=== PATIENT | male | born 1990 | race Two or more races ===

== ENCOUNTER 2018-08-23 23:14 | Emergency (ER) | payer OTHER ==
[~2018-08-23] VITALS: Ht 177.8 cm; Wt 72.7 kg
[2018-08-23 23:46] LABS: BASOPHILS % (AUTO) 0.3 % (0-1); EOSINOPHILS # (AUTO) 0.3 X10'3 (0-0.9); EOSINOPHILS % (AUTO) 2.4 % (0-6); HEMOGLOBIN 14.7 g/dl (14.0-17.9); LYMPHOCYTES # (AUTO) 4.3 X10'3 (1.1-4.8); LYMPHOCYTES % (AUTO) 39.3 % (21-51); MEAN CORPUSCULAR HEMOGLOBIN 28.3 PG (27.0-31.0); MEAN CORPUSCULAR HGB CONC 33.3 % (33.0-36.5); MEAN CORPUSCULAR VOLUME 84.8 FL (78-98); MEAN PLATELET VOLUME 6.8 FL (7.4-10.4); MONOCYTES # (AUTO) 0.5 X10'3 (0-0.9); NEUTROPHILS # (AUTO) 5.8 X10'3 (1.8-7.7); PLATELET COUNT 314 X10'3 (140-440); RED BLOOD COUNT 5.19 X10'6 (4.70-6.10); WHITE BLOOD COUNT 10.9 X10'3 (4.5-11.0)
[2018-08-23] MEDS ORDERED: pantoprazole 40mg Tablet.DR PO ONE (23:50)
[2018-08-23] MEDS ORDERED: ondansetron 4mg rapidly disintigrating tab PO ONE (23:50)
[2018-08-23] MEDS ORDERED: LIDOcaine Viscous 15ml cup PO ONE (23:50)
[2018-08-23] MEDS ORDERED: mag hydrox/Alum hydrox/simeth 30ml oral suspension PO ONE (23:50)
[2018-08-23] MEDS ORDERED: famotidine 20mg tablet PO ONE (23:50)
[2018-08-24 00:04] LABS: ALANINE AMINOTRANSFERASE 33 U/L (12-78); ALBUMIN 3.8 G/DL (3.4-5.0); ALBUMIN/GLOBULIN RATIO 1.2 (1.1-1.5); ALKALINE PHOSPHATASE 105 IU/L (46-116); AMYLASE 77 U/L (25-115); ANION GAP 8 (8-16); ASPARTATE AMINO TRANSFERASE 17 U/L (10-37); BILIRUBIN,TOTAL 0.2 MG/DL (0.1-1.0); BLOOD UREA NITROGEN 12 MG/DL (7-18); BUN/CREATININE RATIO 13.8 (5.4-32.0); CHLORIDE 102 MMOL/L (99-107); CREATININE 0.87 MG/DL (0.60-1.10); GLUCOSE 103 MG/DL (70-104); LIPASE 167 U/L (73-393); POTASSIUM 3.6 MMOL/L (3.5-5.1); SODIUM 139 MMOL/L (135-145); TOTAL CARBON DIOXIDE 28.7 MMOL/L (24-32); eGFR > 90 ML/MIN
[2018-08-24 00:20] LABS: TROPONIN I < 0.04 NG/ML (0.0-0.05)
[2018-08-24 00:27] LABS: PROTHROMBIN TIME 9.7 SECONDS (9.0-12.0)
[2018-08-24 00:36] LABS: CLARITY,URINE CLEAR (Clear); COLOR,URINE YELLOW (Yellow); GLUCOSE, URINE NEGATIVE (Neg); KETONES,URINE NEGATIVE (Neg); LEUKOCYTE ESTERASE ,URINE NEGATIVE (Neg); NITRITES, URINE NEGATIVE (Neg); OCCULT BLOOD,URINE NEGATIVE (Neg); PH,URINE 6.5 (4.8-8.0); PROTEIN,URINE NEGATIVE (Neg)
[2018-08-24 00:38] LABS: UA COLLECTION TYPE CLN CATCH MIDSTREAM
[2018-08-24] MEDS ORDERED: PANT-47 PO (00:58)
[2018-08-24 01:01] VITALS: BP 119/80
== END 2018-08-24 01:02 | disposition home or self-care (01) ==
LOC: ER 23:15
DX: K21.9 Gastro-esophageal reflux disease without esophagitis (principal); R07.89 Other chest pain; F17.210 Nicotine dependence, cigarettes, uncomplicated; Z79.899 Other long term (current) drug therapy
CPT/HCPCS: 36415; 80053; 81003; 82150; 83690; 84484; 85025; 85610; 93005; 99284

== ENCOUNTER 2021-07-17 10:42 | Emergency (ER) | payer MEDICAID ==
[~2021-07-17] VITALS: Ht 170.2 cm; Wt 75.0 kg
[~2021-07-17 10:42] MED LIST: PANT-47 PO
[2021-07-17 11:11] VITALS: BP 131/83
[2021-07-17] MEDS ORDERED: ACET-1025 PO (14:27)
[2021-07-17] MEDS ORDERED: IBUP-1984 PO (14:27)
[2021-07-18] MEDS ORDERED: AMOX-422 PO (01:37)
[2021-07-18] MEDS ORDERED: HYDR-3965 PO (01:42)
== END 2021-07-17 14:58 | disposition home or self-care (01) ==
LOC: ER 10:43
DX: G43.909 Migraine, unspecified, not intractable, without status migrainosus (principal); R11.0 Nausea; K21.9 Gastro-esophageal reflux disease without esophagitis; Z72.89 Other problems related to lifestyle; Z79.899 Other long term (current) drug therapy
CPT/HCPCS: 70450; 99284

== ENCOUNTER 2021-07-18 01:01 | Emergency (ER) | payer MEDICAID ==
[~2021-07-18] VITALS: Ht 175.3 cm; Wt 80.6 kg
[~2021-07-18 01:01] MED LIST changes: +ACET-1025 PO; +IBUP-1984 PO
[2021-07-18 01:17] VITALS: BP 127/87
[2021-07-18] MEDS ORDERED: AMOX-422 PO (01:37)
[2021-07-18] MEDS ORDERED: HYDR-3965 PO (01:42)
[2021-07-18] MEDS ORDERED: HYDROcodone/acetaminophen 5mg/325mg tablet PO ONE (01:45)
[2021-07-18] MEDS ORDERED: amox tr/potassium clavulanate 875/125mg TAB PO ONE (01:45)
== END 2021-07-18 02:00 | disposition home or self-care (01) ==
LOC: ER 01:02
DX: K04.7 Periapical abscess without sinus (principal); J32.9 Chronic sinusitis, unspecified; R51.9 Headache, unspecified; K21.9 Gastro-esophageal reflux disease without esophagitis; Z72.89 Other problems related to lifestyle; Z79.899 Other long term (current) drug therapy
CPT/HCPCS: 99283

== ENCOUNTER 2022-09-23 13:54 | Inpatient (IN) | payer MEDICAID ==
[~2022-09-23] VITALS: Ht 177.8 cm; Wt 73.2 kg
[~2022-09-23 13:54] MED LIST changes: -ACET-1025 PO; -IBUP-1984 PO
[2022-09-23] MEDS ORDERED: acetaminophen 325mg tablet PO ONE (14:30)
[2022-09-23] MEDS ORDERED: ibuprofen tablet 400 MG TABLET PO ONE (16:10)
[2022-09-23] MEDS ORDERED: normal saline 1000ML IV soln IV ONE (16:20)
[2022-09-23] MEDS ORDERED: thiamine 100mg/ml 2ml inj. IV ONE (16:20)
[2022-09-23] MEDS ORDERED: folic acid 1mg/0.2ml inj IV ONE (16:23)
[2022-09-23 16:57] LABS: BASOPHILS % (AUTO) 0.1 % (0-1); EOSINOPHILS % (AUTO) 0.1 % (0-6); HEMATOCRIT 40.9 % (42.0-52.0); HEMOGLOBIN 13.7 g/dl (14.0-17.9); LYMPHOCYTES # (AUTO) 1.2 X10'3 (1.1-4.8); LYMPHOCYTES % (AUTO) 8.3 % (21-51); MEAN CORPUSCULAR HEMOGLOBIN 28.4 PG (27.0-31.0); MEAN CORPUSCULAR HGB CONC 33.4 g/dL (33.0-36.5); MEAN CORPUSCULAR VOLUME 85.2 FL (78-98); MEAN PLATELET VOLUME 7.5 FL (7.4-10.4); MONOCYTES % (AUTO) 6.9 % (2-12); NEUTROPHILS % (AUTO) 84.6 % (42-75); PLATELET COUNT 174 X10'3 (140-440); RED CELL DISTRIBUTION WIDTH 14.4 % (11.5-14.5); WHITE BLOOD COUNT 14.2 X10'3 (4.5-11.0)
[2022-09-23] MEDS: LORazepam 2 mg/ml vial IV ONE ×2 (16:59→18:03)
[2022-09-23] MEDS ORDERED: CefTRIAXone/D5W-Rocephin 1gm 50 ML IV ONE (17:05)
[2022-09-23] MEDS ORDERED: azithromycin/NS 500mg/250ml 250 ML IV ONE (17:05)
[2022-09-23 17:16] LABS: ALANINE AMINOTRANSFERASE 40 U/L (12-78); ALBUMIN 2.8 G/DL (3.4-5.0); ALBUMIN/GLOBULIN RATIO 0.6 (1.1-1.5); ALKALINE PHOSPHATASE 76 IU/L (46-116); ANION GAP 12 (8-16); ASPARTATE AMINO TRANSFERASE 64 U/L (10-37); BILIRUBIN,TOTAL 0.8 MG/DL (0.1-1.0); BLOOD UREA NITROGEN 19 MG/DL (7-18); BUN/CREATININE RATIO 14.3 (5.4-32.0); CALCIUM 8.3 MG/DL (8.5-10.1); CHLORIDE 92 MMOL/L (99-107); CREATININE 1.33 MG/DL (0.60-1.10); GLUCOSE 104 MG/DL (70-104); SODIUM 125 MMOL/L (135-145); TOTAL CARBON DIOXIDE 21.3 MMOL/L (24-32); TOTAL PROTEIN 7.2 G/DL (6.4-8.2); eGFR 62 ML/MIN
--- NOTE | 2022-09-23 17:20 | NUR ---
ATIVAN HELD AT THIS TIME DUE TO PT SCORING 5 ON CIWA.
[2022-09-23 17:21] LABS: POTASSIUM 2.8 MMOL/L (3.5-5.1)
[2022-09-23] MEDS ORDERED: magnesium 2GM in 50ml NS 50 ML IV ONE (17:25)
[2022-09-23] MEDS ORDERED: potassium Cl 10 mEq/100mL bag IV ONE (17:25)
[2022-09-23] MEDS ORDERED: potassium Cl 20 mEq SR tablet PO ONE (17:25)
[2022-09-23 18:09] LABS: URINE AMPHETAMINE SCREEN POSITIVE (Neg); URINE BARBITUATE SCREEN NEGATIVE (Neg); URINE BENZODIAZEPINES SCREEN NEGATIVE (Neg); URINE CANNABINOID SCREEN NEGATIVE (Neg); URINE COCAINE SCREEN NEGATIVE (Neg); URINE METHADONE SCREEN NEGATIVE (Neg); URINE OPIATE SCREEN NEGATIVE (Neg); URINE PHENCYCLIDINE SCREEN NEGATIVE (Neg)
[2022-09-23 18:25] LABS: CLARITY,URINE SLIGHTLY CLOUDY (Clear); COLOR,URINE YELLOW (Yellow); GLUCOSE, URINE NEGATIVE (Neg); KETONES,URINE 40 mg/dl (Neg); LEUKOCYTE ESTERASE ,URINE NEGATIVE (Neg); NITRITES, URINE NEGATIVE (Neg); OCCULT BLOOD,URINE MODERATE (Neg); PROTEIN,URINE 30 mg/dl (Neg); UROBILINOGEN,URINE 0.2 E.U/dL (0.2-1.0)
[2022-09-23 18:30] LABS: TOTAL CELLS COUNTED 100
[2022-09-23 18:31] LABS: ANISOCYTOSIS FEW; PLATELET ESTIMATE NORMAL; TOXIC VACUOLATION 3+
[2022-09-23 18:36] LABS: UA COLLECTION TYPE NON-SPECIFIED
[2022-09-23 18:38] LABS: BACTERIA,URINE 1+ /HPF (Neg); WBC,URINE 0-4 /HPF (0-4)
[2022-09-23 18:39] LABS: SQUAMOUS EPITHELIAL CELL,UR FEW /LPF (FEW); TRANSITIONAL EPI CELLS,URINE FEW /HPF
[2022-09-23] MEDS ORDERED: normal saline 1000ml 1,000 ML IV SCH (19:25)
[2022-09-23] MEDS ORDERED: mag hydrox/Alum hydrox/simeth 30ml oral suspension PO PRN (19:25)
[2022-09-23] MEDS ORDERED: acetaminophen 325mg tablet PO PRN (19:25)
[2022-09-23] MEDS ORDERED: potassium Cl 40MEQ/1/2NS 520ml 520 ML IV PRN (19:25)
[2022-09-23] MEDS ORDERED: potassium Cl 20 mEq SR tablet PO PRN ×2 (19:25)
[2022-09-23] MEDS ORDERED: LORazepam 2 mg/ml vial IV PRN (19:25)
[2022-09-23] MEDS ORDERED: magnesium hydroxide 30ml (MOM) UD suspension PO PRN (19:25)
[2022-09-23] MEDS ORDERED: magnesium 4gm in 100ml NS 100 ML IV PRN (19:25)
[2022-09-23] MEDS ORDERED: ondansetron/PF 4mg/2ml inj IV PRN (19:25)
[2022-09-23] MEDS ORDERED: magnesium Cl slow-release 64mg tablet PO PRN (19:25)
[2022-09-23] MEDS ORDERED: albuterol 2.5 MG/3 ML nebule NEB PRN (19:35)
[2022-09-23] MEDS ORDERED: K and/or MAG REPLACEMENT MC SCH (20:00)
[2022-09-23] MEDS ORDERED: docusate sod 100mg capsule PO SCH (20:00)
[2022-09-23 23:57] LABS: ALANINE AMINOTRANSFERASE 40 U/L (12-78); ALBUMIN 2.4 G/DL (3.4-5.0); ALBUMIN/GLOBULIN RATIO 0.6 (1.1-1.5); ALKALINE PHOSPHATASE 69 IU/L (46-116); ANION GAP 10 (8-16); ASPARTATE AMINO TRANSFERASE 57 U/L (10-37); BILIRUBIN,TOTAL 0.7 MG/DL (0.1-1.0); BLOOD UREA NITROGEN 17 MG/DL (7-18); BUN/CREATININE RATIO 15.6 (5.4-32.0); CALCIUM 7.9 MG/DL (8.5-10.1); CHLORIDE 99 MMOL/L (99-107); CREATININE 1.09 MG/DL (0.60-1.10); GLUCOSE 103 MG/DL (70-104); POTASSIUM 3.4 MMOL/L (3.5-5.1); SODIUM 133 MMOL/L (135-145); TOTAL CARBON DIOXIDE 23.8 MMOL/L (24-32); TOTAL PROTEIN 6.6 G/DL (6.4-8.2); eGFR 78 ML/MIN
[2022-09-24 01:00] VITALS: BP 96/60
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
--- NOTE | 2022-09-24 06:08 | NUR ---
his mother was notified that he left the ER. She was made aware he has an IV still in place. She will go look for him.
[2022-09-24] MEDS ORDERED: pantoprazole 40mg Tablet.DR PO SCH (08:00)
[2022-09-24] MEDS ORDERED: CefTRIAXone/D5W-Rocephin 1gm 50 ML IV SCH (08:00)
[2022-09-24] MEDS ORDERED: multivitamins, therapeutics tablet PO SCH (08:00)
[2022-09-24] MEDS ORDERED: azithromycin/NS 500mg/250ml 250 ML IV SCH (08:00)
[2022-09-24] MEDS ORDERED: NO HOME MEDS (14:30)
[2022-09-28] MEDS ORDERED: folic acid 1mg tablet PO SCH (08:00)
[2022-09-28] MEDS ORDERED: thiamine 100mg tablet PO SCH (08:00)
== END 2022-09-24 08:11 | disposition left against medical advice (07) | DRG 720 ==
LOC: ER 13:55 → ED HOLD 19:30
PROVIDERS: ADMIT Family Medicine; ATTEND Family Medicine
DX: A41.9 Sepsis, unspecified organism (principal); N17.0 Acute kidney failure with tubular necrosis; J18.9 Pneumonia, unspecified organism; Z20.822 Contact with and (suspected) exposure to COVID-19; D64.9 Anemia, unspecified; E86.0 Dehydration; F10.230 Alcohol dependence with withdrawal, uncomplicated; K21.9 Gastro-esophageal reflux disease without esophagitis; E87.6 Hypokalemia; E87.1 Hypo-osmolality and hyponatremia; F15.10 Other stimulant abuse, uncomplicated; F17.210 Nicotine dependence, cigarettes, uncomplicated; Z79.899 Other long term (current) drug therapy; Z71.6 Tobacco abuse counseling
CPT/HCPCS: 36415; 71045; 80053; 80305; 81001; 82948; 83605; 84145; 84484; 85007; 85025; 87040; 87502; 87503; 87635; 99285; C9803; G0378; J0456; J0696; J2060; J3411; J3475; J3480; J7030

== ENCOUNTER 2022-09-24 11:21 | Inpatient (IN) | payer MEDICAID ==
[~2022-09-24] VITALS: Ht 177.8 cm; Wt 77.3 kg
[2022-09-24] MEDS ORDERED: acetaminophen 325mg tablet PO STA (11:31)
[2022-09-24] MEDS ORDERED: normal saline 1000ML IV soln IV ONE (11:35)
[2022-09-24] MEDS ORDERED: CefTRIAXone 2gm/D5W 50ml BAG 50 ML IV ONE (11:35)
[2022-09-24] MEDS ORDERED: azithromycin/NS 500mg/250ml 250 ML IV ONE ×2 (11:45→18:00)
[2022-09-24 12:07] LABS: BASOPHILS % (AUTO) 0.1 % (0-1); EOSINOPHILS % (AUTO) 0 % (0-6); HEMATOCRIT 38.8 % (42.0-52.0); LYMPHOCYTES # (AUTO) 0.6 X10'3 (1.1-4.8); LYMPHOCYTES % (AUTO) 5.5 % (21-51); MEAN CORPUSCULAR HEMOGLOBIN 28.5 PG (27.0-31.0); MEAN CORPUSCULAR HGB CONC 33.6 g/dL (33.0-36.5); MEAN PLATELET VOLUME 7.6 FL (7.4-10.4); MONOCYTES # (AUTO) 0.4 X10'3 (0-0.9); MONOCYTES % (AUTO) 3.9 % (2-12); NEUTROPHILS # (AUTO) 9.5 X10'3 (1.8-7.7); NEUTROPHILS % (AUTO) 90.5 % (42-75); PLATELET COUNT 190 X10'3 (140-440); RED BLOOD COUNT 4.57 X10'6 (4.70-6.10); RED CELL DISTRIBUTION WIDTH 14.2 % (11.5-14.5); WHITE BLOOD COUNT 10.5 X10'3 (4.5-11.0)
[2022-09-24 12:26] LABS: ALANINE AMINOTRANSFERASE 43 U/L (12-78); ALBUMIN 2.4 G/DL (3.4-5.0); ALBUMIN/GLOBULIN RATIO 0.6 (1.1-1.5); ALKALINE PHOSPHATASE 83 IU/L (46-116); ANION GAP 7 (8-16); ASPARTATE AMINO TRANSFERASE 70 U/L (10-37); BILIRUBIN,TOTAL 0.5 MG/DL (0.1-1.0); BLOOD UREA NITROGEN 15 MG/DL (7-18); BUN/CREATININE RATIO 13.6 (5.4-32.0); CALCIUM 7.5 MG/DL (8.5-10.1); CHLORIDE 100 MMOL/L (99-107); ETHANOL < 0.010 GM/DL (0.0-0.010); GLUCOSE 126 MG/DL (70-104); POTASSIUM 3.6 MMOL/L (3.5-5.1); SODIUM 131 MMOL/L (135-145); TOTAL CARBON DIOXIDE 23.7 MMOL/L (24-32); TOTAL PROTEIN 6.5 G/DL (6.4-8.2); eGFR 77 ML/MIN
[2022-09-24] MEDS ORDERED: potassium Cl 20 mEq SR tablet PO PRN (13:10)
[2022-09-24] MEDS ORDERED: potassium Cl 40MEQ/1/2NS 520ml 520 ML IV PRN (13:10)
[2022-09-24] MEDS ORDERED: mag hydrox/Alum hydrox/simeth 30ml oral suspension PO PRN (13:10)
[2022-09-24] MEDS ORDERED: ondansetron/PF 4mg/2ml inj IV PRN (13:10)
[2022-09-24] MEDS ORDERED: magnesium hydroxide 30ml (MOM) UD suspension PO PRN (13:10)
[2022-09-24] MEDS ORDERED: magnesium 4gm in 100ml NS 100 ML IV PRN (13:10)
[2022-09-24] MEDS ORDERED: magnesium Cl slow-release 64mg tablet PO PRN (13:10)
--- NOTE | 2022-09-24 13:10 | NUR ---
Received order for consult. Patient was discharged. Left message for patient to call me.
--- NOTE | 2022-09-24 13:18 | NUR ---
Patient refusing ABG Addendum: 09/24/22 at 1320 by SUKI Patient refusing ABG notified
[2022-09-24] MEDS ORDERED: vancomycin/NS 1 GM ADD-VANTAGE 250 ML IV SCH (13:22)
[2022-09-24] MEDS ORDERED: dextrose 50%-water 50ml dispensing syringe IV PRN (13:55)
[2022-09-24] MEDS: LORazepam 2 mg/ml vial IV PRN ×3 (14:27→20:07)
[2022-09-24] MEDS: normal saline 1000ml 1,000 ML IV SCH ×2 (14:29→23:54)
[2022-09-24] MEDS ORDERED: NO HOME MEDS (14:30)
[2022-09-24] MEDS: folic acid 1mg/0.2ml inj IV SCH (14:46)
[2022-09-24 16:00] VITALS: BP 122/65
--- NOTE | 2022-09-24 17:33 | NUR ---
paged PAGER ID: [phone] MESSAGE: [id number]. Adams. bp 87/41, RR 45, HR 133, temp 102. actively withdrawing from ETOH, ativan given. Not responding to sternal rub, only moans. Pls advise. Jaclyn [phone]
[2022-09-24] MEDS ORDERED: normal saline 1000ml 1,000 ML IV ONE (17:40)
[2022-09-24 18:03] LABS: ABG BASE EXCESS -2.8 mmol/L (-2.0-2.0); ABG HCO3 19.9 mmol/L (22.0-26.0); ABG OXYGEN SATURATION 86.2 % (94-97); ABG PCO2 (T) 30.8 mmHg (35.0-48.0); ABG PO2 (T) 55.2 mmHg (75.0-100.0); ALLEN'S TEST POSITIVE; FCOHb 0.4 % (0.0-3.9); FMetHb 0.1 % (0.0-1.5); FO2Hb 85.8 % (94-97); PATIENT TEMPERATURE 38.9
[2022-09-24] MEDS: acetaminophen 325mg tablet PO PRN (18:05)
--- NOTE | 2022-09-24 18:40 | NUR ---
Pt arrived to unit around 1600 from ED. Presented a/o x4. vs 122/65,hr 121, o2 93% on ra, temp 102.6. Gave tylenol PO. Diagnosis is etoh and pna. As withdrawal symptoms presented as severe shaking and agitation., 4mg ativan iv given. Pt had a bloody nose. pt admitted to snorting meth 2 days ago. he drinks a large jug of vodka every day. mother, brother and sister are at bedside, making it hard to perform care on the patient. asked for them to step out several times. resp rate started to increase and bp started to drop. assistant boys track coach and co-worker RN came to bedside to assess. paged Dr. Rose. Resp rate is 45, temp 102.4, o2 93% on ra, bp 87/41, hr 125-135. Orders received to bolus 1 liter of fluid due to sepsis. assistant boys track coach had ICU charge come to assess. ABG's ordered. Placed pt on 2.5L O2. Pt moaning to sternal rub but not opening eyes. Placed ice packs in bilat groins and bilat arm pits to help bring fever down. Dr. Rose is aware of all vital signs, and how pt is presenting currently. Endorsed to noc RN. Answered all questions. RN states she understands all reported.
[2022-09-24 20:00] VITALS: BP 102/65
[2022-09-24] MEDS: K and/or MAG REPLACEMENT MC SCH (20:00)
[2022-09-24] MEDS: docusate sod 100mg capsule PO SCH (20:00)
[2022-09-24] MEDS: thiamine 100mg/ml 2ml inj. IV SCH (21:43)
[2022-09-24] MEDS: heparin, porcine 5000 units/ml vial SQ SCH (21:44)
[2022-09-24 22:27] VITALS: BP 110/61
[2022-09-25] MEDS: acetaminophen 325mg tablet PO PRN ×2 (01:16→11:11)
[2022-09-25 01:23] VITALS: BP 117/68
[2022-09-25] MEDS: vancomycin/NS 1 GM ADD-VANTAGE 250 ML IV SCH ×2 (01:26→14:17)
[2022-09-25] MEDS: LORazepam 2 mg/ml vial IV PRN ×7 (04:05→23:32)
[2022-09-25 06:34] LABS: BASOPHILS % (AUTO) 0.1 % (0-1); EOSINOPHILS % (AUTO) 0 % (0-6); HEMATOCRIT 34.3 % (42.0-52.0); HEMOGLOBIN 11.4 g/dl (14.0-17.9); LYMPHOCYTES # (AUTO) 1.4 X10'3 (1.1-4.8); LYMPHOCYTES % (AUTO) 16.1 % (21-51); MEAN CORPUSCULAR HEMOGLOBIN 28.5 PG (27.0-31.0); MEAN CORPUSCULAR HGB CONC 33.4 g/dL (33.0-36.5); MEAN CORPUSCULAR VOLUME 85.6 FL (78-98); MEAN PLATELET VOLUME 8.2 FL (7.4-10.4); MONOCYTES # (AUTO) 0.7 X10'3 (0-0.9); MONOCYTES % (AUTO) 7.9 % (2-12); NEUTROPHILS # (AUTO) 6.7 X10'3 (1.8-7.7); NEUTROPHILS % (AUTO) 75.9 % (42-75); PLATELET COUNT 171 X10'3 (140-440); RED CELL DISTRIBUTION WIDTH 14.4 % (11.5-14.5); WHITE BLOOD COUNT 8.8 X10'3 (4.5-11.0)
[2022-09-25 06:37] LABS: ALBUMIN 1.8 G/DL (3.4-5.0); ANION GAP 7 (8-16); BLOOD UREA NITROGEN 9 MG/DL (7-18); BUN/CREATININE RATIO 9.8 (5.4-32.0); CALCIUM 7.2 MG/DL (8.5-10.1); CHLORIDE 105 MMOL/L (99-107); CREATININE 0.92 MG/DL (0.60-1.10); GLUCOSE 92 MG/DL (70-104); MAGNESIUM 2.3 MG/DL (1.5-2.4); POTASSIUM 3.4 MMOL/L (3.5-5.1); SODIUM 136 MMOL/L (135-145); TOTAL CARBON DIOXIDE 23.6 MMOL/L (24-32); eGFR > 90 ML/MIN
[2022-09-25 07:21] VITALS: BP 113/75
[2022-09-25] MEDS: docusate sod 100mg capsule PO SCH ×2 (08:00→19:25)
[2022-09-25] MEDS: K and/or MAG REPLACEMENT MC SCH ×2 (08:00→19:24)
[2022-09-25] MEDS: thiamine 100mg/ml 2ml inj. IV SCH ×3 (09:15→20:12)
[2022-09-25] MEDS: levoFLOXACIN-Levaquin 750MG/D5 150 ML IV SCH (09:15)
[2022-09-25] MEDS: normal saline 1000ml 1,000 ML IV SCH ×2 (09:15→19:20)
[2022-09-25] MEDS: heparin, porcine 5000 units/ml vial SQ SCH ×2 (09:15→19:25)
[2022-09-25] MEDS ORDERED: ipratropium/albuterol 3ml nebule NEB PRN (10:10)
[2022-09-25] MEDS ORDERED: methylPREDNISolone sod succ 125mg/2ml vial IV ONE (10:10)
[2022-09-25 11:30] VITALS: BP 119/78
[2022-09-25] MEDS: ipratropium/albuterol 3ml nebule NEB SCH ×4 (12:30→23:16)
--- NOTE | 2022-09-25 12:47 | NUR ---
PT tacypneic diaphoretic, agitated, Concerns for rapid decline expressed to RN and charge master analyst, pt sp02 92 on 35% venti mask 12lpm. Addendum: 09/25/22 at 1248 by Faina Katz RT Amended: Links added.
--- NOTE | 2022-09-25 13:54 | NUR ---
Pt was running a fever of 103.3 and I gave Tylenol along with ice bags to arm pits. Pt's new temp is 98.9. Will continue to monitor.
[2022-09-25] MEDS: methylPREDNISolone sod succ 125mg/2ml vial IV SCH ×2 (14:17→19:24)
[2022-09-25 15:08] VITALS: BP 96/64
[2022-09-25 18:46] VITALS: BP 99/67
[2022-09-25 22:22] VITALS: BP 109/66
[2022-09-26] MEDS: LORazepam 2 mg/ml vial IV PRN ×7 (01:21→19:17)
[2022-09-26] MEDS ORDERED: VANCOMYCIN LEVEL IV ONE (01:30)
[2022-09-26 02:00] VITALS: BP 109/71
[2022-09-26 02:16] LABS: ALBUMIN 1.8 G/DL (3.4-5.0); ANION GAP 7 (8-16); BLOOD UREA NITROGEN 9 MG/DL (7-18); BUN/CREATININE RATIO 11.7 (5.4-32.0); CALCIUM 7.7 MG/DL (8.5-10.1); CHLORIDE 106 MMOL/L (99-107); CREATININE 0.77 MG/DL (0.60-1.10); GLUCOSE 173 MG/DL (70-104); MAGNESIUM 2.2 MG/DL (1.5-2.4); POTASSIUM 3.1 MMOL/L (3.5-5.1); SODIUM 136 MMOL/L (135-145); TOTAL CARBON DIOXIDE 23.3 MMOL/L (24-32); VANCOMYCIN,TROUGH 4.1 UG/ML (6.0-14.0); eGFR > 90 ML/MIN
[2022-09-26] MEDS ORDERED: vancomycin/NS 1 GM ADD-VANTAGE 250 ML IV SCH ×2 (02:26→02:32)
[2022-09-26] MEDS: methylPREDNISolone sod succ 125mg/2ml vial IV SCH ×4 (02:29→19:47)
[2022-09-26] MEDS: vancomycin/NS 1 GM ADD-VANTAGE 250 ML IV SCH ×3 (02:42→19:46)
[2022-09-26] MEDS: ipratropium/albuterol 3ml nebule NEB SCH ×6 (04:01→23:04)
[2022-09-26] MEDS: normal saline 1000ml 1,000 ML IV SCH ×2 (04:47→15:10)
[2022-09-26] MEDS: potassium Cl 20 mEq SR tablet PO PRN ×3 (05:03→19:21)
[2022-09-26 06:52] LABS: BASOPHILS % (AUTO) 0.2 % (0-1); EOSINOPHILS % (AUTO) 0 % (0-6); HEMOGLOBIN 11.4 g/dl (14.0-17.9); LYMPHOCYTES % (AUTO) 11.4 % (21-51); MEAN CORPUSCULAR HEMOGLOBIN 29.3 PG (27.0-31.0); MEAN CORPUSCULAR HGB CONC 34.4 g/dL (33.0-36.5); MEAN CORPUSCULAR VOLUME 85.1 FL (78-98); MEAN PLATELET VOLUME 8.2 FL (7.4-10.4); MONOCYTES # (AUTO) 0.4 X10'3 (0-0.9); MONOCYTES % (AUTO) 4.8 % (2-12); NEUTROPHILS # (AUTO) 7.4 X10'3 (1.8-7.7); NEUTROPHILS % (AUTO) 83.6 % (42-75); PLATELET COUNT 183 X10'3 (140-440); RED BLOOD COUNT 3.88 X10'6 (4.70-6.10); RED CELL DISTRIBUTION WIDTH 14.3 % (11.5-14.5); WHITE BLOOD COUNT 8.8 X10'3 (4.5-11.0)
[2022-09-26 07:00] VITALS: BP 104/65
--- NOTE | 2022-09-26 07:23 | NUR ---
PAGER ID: [phone] MESSAGE: Adams [email or web address], Pt has renewable order for restrains and can still benefit from their use, night could not be reached to renew the order. Can you please renew the order? Andres [phone]
[2022-09-26] MEDS: K and/or MAG REPLACEMENT MC SCH ×2 (08:00→19:48)
[2022-09-26] MEDS: docusate sod 100mg capsule PO SCH ×2 (08:00→19:48)
[2022-09-26] MEDS: folic acid 1mg/0.2ml inj IV SCH (08:37)
[2022-09-26] MEDS: heparin, porcine 5000 units/ml vial SQ SCH ×2 (08:38→19:47)
[2022-09-26] MEDS: thiamine 100mg/ml 2ml inj. IV SCH ×3 (08:38→20:08)
[2022-09-26] MEDS: levoFLOXACIN-Levaquin 750MG/D5 150 ML IV SCH (08:39)
[2022-09-26 11:00] VITALS: BP 100/63
[2022-09-26] MEDS: haloperidol lactate 5mg/ml inj IM PRN ×2 (14:22→20:33)
[2022-09-26 16:04] VITALS: BP 109/70
[2022-09-26 18:00] VITALS: BP 113/70
[2022-09-26 21:39] VITALS: BP 108/66
[2022-09-27] MEDS: normal saline 1000ml 1,000 ML IV SCH ×3 (01:10→21:20)
[2022-09-27 02:00] VITALS: BP 105/84
[2022-09-27] MEDS ORDERED: VANCOMYCIN LEVEL IV ONE (02:30)
[2022-09-27] MEDS: vancomycin/NS 1 GM ADD-VANTAGE 250 ML IV SCH (03:00)
[2022-09-27] MEDS: LORazepam 2 mg/ml vial IV PRN ×7 (03:09→23:27)
[2022-09-27] MEDS: methylPREDNISolone sod succ 125mg/2ml vial IV SCH ×4 (03:09→19:36)
[2022-09-27 03:26] LABS: ALBUMIN 1.8 G/DL (3.4-5.0); ANION GAP 4 (8-16); BLOOD UREA NITROGEN 16 MG/DL (7-18); CALCIUM 7.8 MG/DL (8.5-10.1); CHLORIDE 109 MMOL/L (99-107); CREATININE 0.89 MG/DL (0.60-1.10); GLUCOSE 143 MG/DL (70-104); MAGNESIUM 2.1 MG/DL (1.5-2.4); SODIUM 140 MMOL/L (135-145); TOTAL CARBON DIOXIDE 26.9 MMOL/L (24-32); VANCOMYCIN,TROUGH 8.8 UG/ML (6.0-14.0); eGFR > 90 ML/MIN
[2022-09-27] MEDS ORDERED: VANCOmycin 1250MG/NS 250ml Bag 250 ML IV SCH (04:00)
[2022-09-27] MEDS: ipratropium/albuterol 3ml nebule NEB SCH ×6 (04:09→23:00)
[2022-09-27 07:00] VITALS: BP 117/71
[2022-09-27 07:27] LABS: BASOPHILS % (AUTO) 0.3 % (0-1); EOSINOPHILS % (AUTO) 0 % (0-6); HEMOGLOBIN 10.5 g/dl (14.0-17.9); LYMPHOCYTES % (AUTO) 7.8 % (21-51); MEAN CORPUSCULAR HGB CONC 32.9 g/dL (33.0-36.5); MEAN CORPUSCULAR VOLUME 85.2 FL (78-98); MEAN PLATELET VOLUME 8.3 FL (7.4-10.4); MONOCYTES # (AUTO) 0.9 X10'3 (0-0.9); MONOCYTES % (AUTO) 6.8 % (2-12); NEUTROPHILS # (AUTO) 11.1 X10'3 (1.8-7.7); NEUTROPHILS % (AUTO) 85.1 % (42-75); PLATELET COUNT 285 X10'3 (140-440); RED BLOOD COUNT 3.75 X10'6 (4.70-6.10); RED CELL DISTRIBUTION WIDTH 14.4 % (11.5-14.5)
[2022-09-27] MEDS: K and/or MAG REPLACEMENT MC SCH ×2 (08:00→20:00)
[2022-09-27] MEDS: heparin, porcine 5000 units/ml vial SQ SCH ×2 (08:00→19:28)
[2022-09-27] MEDS: docusate sod 100mg capsule PO SCH ×2 (08:00→19:26)
--- NOTE | 2022-09-27 08:03 | NUR ---
Paged Dr Linares: Adams [phone]. Restraint order needs to be renewed by 0930. Lois [phone]
[2022-09-27] MEDS: levoFLOXACIN-Levaquin 750MG/D5 150 ML IV SCH (10:01)
[2022-09-27] MEDS: thiamine 100mg/ml 2ml inj. IV SCH ×2 (10:02→13:34)
[2022-09-27] MEDS: folic acid 1mg/0.2ml inj IV SCH (10:51)
[2022-09-27 11:09] VITALS: BP 108/68
[2022-09-27] MEDS: VANCOmycin 1250MG/NS 250ml Bag 250 ML IV SCH ×2 (13:00→21:19)
--- NOTE | 2022-09-27 14:07 | NUR ---
Scanner not working
[2022-09-27 15:07] VITALS: BP 106/65
--- NOTE | 2022-09-27 15:47 | NUR ---
Met with patient in regards to substance use and to see if patient was interested in resources for treatment options. Patient is currently waiting for a bed at [facility]. Patient wants to go to inpatient rehab. I talked to patient about calling [facility] to see if they can get him a bed sooner somewhere else. I gave patient a card for [facility] to get him medication to help with cravings and my card to call me with any questions.
[2022-09-27] MEDS: haloperidol lactate 5mg/ml inj IM PRN ×2 (16:15→19:47)
--- NOTE | 2022-09-27 17:18 | NUR ---
Gave pt clothing to Mom who took them home as she was concerned he might try to leave AMA. Addendum: 09/27/22 at 1744 by Lois Norton RN Unable to complete malnutrition screening per pt AMS
[2022-09-27 18:00] VITALS: BP 110/64
--- NOTE | 2022-09-27 19:02 | NUR ---
RECEIVED PATIENT REPORT FROM GARY, ASSUMING PATIENT CARE.
[2022-09-27 22:41] VITALS: BP 134/78
[2022-09-28] MEDS: LORazepam 2 mg/ml vial IV PRN ×11 (00:16→23:30)
[2022-09-28] MEDS: methylPREDNISolone sod succ 125mg/2ml vial IV SCH ×3 (01:34→14:54)
[2022-09-28 02:00] VITALS: BP 105/63
[2022-09-28] MEDS: ipratropium/albuterol 3ml nebule NEB SCH ×6 (03:26→23:25)
[2022-09-28] MEDS ORDERED: VANCOMYCIN LEVEL IV ONE (04:30)
[2022-09-28] MEDS: VANCOmycin 1250MG/NS 250ml Bag 250 ML IV SCH ×3 (04:58→21:15)
[2022-09-28 05:04] LABS: BASOPHILS % (AUTO) 0.2 % (0-1); EOSINOPHILS % (AUTO) 0.1 % (0-6); HEMATOCRIT 29.9 % (42.0-52.0); HEMOGLOBIN 9.8 g/dl (14.0-17.9); LYMPHOCYTES # (AUTO) 1.4 X10'3 (1.1-4.8); LYMPHOCYTES % (AUTO) 10.8 % (21-51); MEAN CORPUSCULAR HEMOGLOBIN 28.2 PG (27.0-31.0); MEAN CORPUSCULAR HGB CONC 32.9 g/dL (33.0-36.5); MEAN CORPUSCULAR VOLUME 85.8 FL (78-98); MEAN PLATELET VOLUME 7.9 FL (7.4-10.4); MONOCYTES # (AUTO) 0.7 X10'3 (0-0.9); MONOCYTES % (AUTO) 5.6 % (2-12); NEUTROPHILS # (AUTO) 10.5 X10'3 (1.8-7.7); NEUTROPHILS % (AUTO) 83.3 % (42-75); PLATELET COUNT 335 X10'3 (140-440); RED BLOOD COUNT 3.49 X10'6 (4.70-6.10); RED CELL DISTRIBUTION WIDTH 14.6 % (11.5-14.5); WHITE BLOOD COUNT 12.6 X10'3 (4.5-11.0)
[2022-09-28 05:20] LABS: ALBUMIN 1.9 G/DL (3.4-5.0); ANION GAP 4 (8-16); BLOOD UREA NITROGEN 18 MG/DL (7-18); BUN/CREATININE RATIO 19.4 (5.4-32.0); CALCIUM 7.7 MG/DL (8.5-10.1); CHLORIDE 108 MMOL/L (99-107); CREATININE 0.93 MG/DL (0.60-1.10); GLUCOSE 126 MG/DL (70-104); MAGNESIUM 2.1 MG/DL (1.5-2.4); POTASSIUM 3.7 MMOL/L (3.5-5.1); SODIUM 142 MMOL/L (135-145); TOTAL CARBON DIOXIDE 30.4 MMOL/L (24-32); VANCOMYCIN,TROUGH 15.8 UG/ML (6.0-14.0); eGFR > 90 ML/MIN
--- NOTE | 2022-09-28 06:09 | NUR ---
gave shift report to kiana MULLER.
[2022-09-28 07:00] VITALS: BP 101/54
[2022-09-28] MEDS: K and/or MAG REPLACEMENT MC SCH ×2 (08:00→20:00)
[2022-09-28] MEDS: levoFLOXACIN-Levaquin 750MG/D5 150 ML IV SCH (09:50)
[2022-09-28] MEDS: heparin, porcine 5000 units/ml vial SQ SCH ×2 (09:51→19:40)
[2022-09-28] MEDS: normal saline 1000ml 1,000 ML IV SCH ×2 (09:53→10:18)
[2022-09-28] MEDS: docusate sod 100mg capsule PO SCH ×2 (11:37→19:40)
[2022-09-28 12:20] VITALS: BP 112/60
--- NOTE | 2022-09-28 15:07 | NUR ---
Did not administer ativan per low BP, pt now resting comfortably with family at bedside after total linen change and condom catheter replacement. Will continue to monitor. Addendum: 09/28/22 at 1924 by Lois Norton RN Pt had bed bath and skin check, clean dry & intact
[2022-09-28 15:50] VITALS: BP 105/63
[2022-09-28 18:00] VITALS: BP 114/66
[2022-09-28 22:00] VITALS: BP 119/81
[2022-09-29] MEDS: LORazepam 2 mg/ml vial IV PRN ×9 (00:10→16:46)
[2022-09-29 02:46] VITALS: BP 114/73
[2022-09-29] MEDS: ipratropium/albuterol 3ml nebule NEB SCH ×6 (03:09→22:38)
[2022-09-29] MEDS: normal saline 1000ml 1,000 ML IV SCH ×2 (04:31→22:20)
[2022-09-29] MEDS: VANCOmycin 1250MG/NS 250ml Bag 250 ML IV SCH ×3 (05:00→22:20)
--- NOTE | 2022-09-29 06:21 | NUR ---
gave shift report to Rafaela MULLER and is now assuming care
[2022-09-29 07:00] VITALS: BP 123/78
[2022-09-29 07:24] LABS: BASOPHILS % (AUTO) 0.1 % (0-1); EOSINOPHILS # (AUTO) 0.4 X10'3 (0-0.9); EOSINOPHILS % (AUTO) 2.1 % (0-6); HEMOGLOBIN 10.1 g/dl (14.0-17.9); LYMPHOCYTES # (AUTO) 3.9 X10'3 (1.1-4.8); LYMPHOCYTES % (AUTO) 21.7 % (21-51); MEAN CORPUSCULAR HGB CONC 32.7 g/dL (33.0-36.5); MEAN CORPUSCULAR VOLUME 85.6 FL (78-98); MEAN PLATELET VOLUME 7.6 FL (7.4-10.4); MONOCYTES # (AUTO) 1.4 X10'3 (0-0.9); MONOCYTES % (AUTO) 7.9 % (2-12); NEUTROPHILS # (AUTO) 12.3 X10'3 (1.8-7.7); NEUTROPHILS % (AUTO) 68.2 % (42-75); PLATELET COUNT 404 X10'3 (140-440); RED BLOOD COUNT 3.62 X10'6 (4.70-6.10); RED CELL DISTRIBUTION WIDTH 14.1 % (11.5-14.5); WHITE BLOOD COUNT 18.1 X10'3 (4.5-11.0)
[2022-09-29 07:34] LABS: ANION GAP 6 (8-16); BLOOD UREA NITROGEN 12 MG/DL (7-18); BUN/CREATININE RATIO 17.9 (5.4-32.0); CALCIUM 7.7 MG/DL (8.5-10.1); CHLORIDE 106 MMOL/L (99-107); CREATININE 0.67 MG/DL (0.60-1.10); GLUCOSE 85 MG/DL (70-104); SODIUM 141 MMOL/L (135-145); TOTAL CARBON DIOXIDE 29.3 MMOL/L (24-32); eGFR > 90 ML/MIN
[2022-09-29] MEDS: docusate sod 100mg capsule PO SCH ×2 (08:00→19:57)
[2022-09-29] MEDS ORDERED: predniSONE 20 mg tablet PO SCH (08:30)
[2022-09-29] MEDS ORDERED: potassium Cl 20 mEq SR tablet PO PRN (08:40)
[2022-09-29] MEDS ORDERED: magnesium Cl slow-release 64mg tablet PO PRN (08:40)
[2022-09-29] MEDS ORDERED: magnesium 4gm in 100ml NS 100 ML IV PRN (08:40)
[2022-09-29] MEDS ORDERED: potassium Cl 40MEQ/1/2NS 520ml 520 ML IV PRN (08:40)
[2022-09-29] MEDS: levoFLOXACIN-Levaquin 750MG/D5 150 ML IV SCH (08:50)
[2022-09-29] MEDS: thiamine 100mg tablet PO SCH (08:51)
[2022-09-29] MEDS: folic acid 1mg tablet PO SCH (08:51)
[2022-09-29] MEDS: heparin, porcine 5000 units/ml vial SQ SCH ×2 (08:51→19:57)
[2022-09-29 08:59] LABS: PLATELET ESTIMATE NORMAL; TOTAL CELLS COUNTED 100
[2022-09-29 09:48] LABS: MAGNESIUM 2.4 MG/DL (1.5-2.4)
--- NOTE | 2022-09-29 14:04 | NUR ---
Initial: Pt admit for sepsis secondary to PNA, severe EtOH w/d, meth use, and hyponatremia. Pt on a regular diet and with poor PO intake on 09/25 however with average 71% PO intake since 09/26 which meets 91% estimated energy needs and 63% estimated protein needs. Per EMR pt receiving total assistance with meals as pt confused and not following commands. See recommended nutrition interventions below that were d/w dietary to assist with further meeting estimated nutrient needs. LBM 09/25, receiving routine bowel care. Will continue to follow and monitor need for additional nutrition intervention. Recommendations: 1) Continue regular diet 2) Yogurt and smoothie WB, shake BIDLD; monitor need for ONS 3) Total assist with meals in view of AMS 4) Routine Thiamine and Folic acid for EtOH hx 5) Routine bowel care 6) Scaled weight this admit; subsequent weekly scaled weights Addendum: 09/29/22 at [address] Amended: Links added.
--- NOTE | 2022-09-29 14:40 | NUR ---
Went to follow up with patient to see how he is doing. Patient has a bed at [facility] on the . Patient still not alert and orientated enough to call [place] to try to get a bed sooner somewhere else. I will continue to follow up with patient.
--- NOTE | 2022-09-29 16:51 | NUR ---
PAGER ID: [phone] MESSAGE: [id number] Adams broke through restraints. Can we get 4 point? Thank you Jenna GARCÍA [phone]
[2022-09-29] MEDS: haloperidol lactate 5mg/ml inj IM PRN (16:54)
--- NOTE | 2022-09-29 17:00 | NUR ---
Pt agitated. Both legs out of the bed. Screaming at the nurse trying to kick her. See medical insurance clerk. Pt ripped through wrist restraints. RN requested additional help at pt was still trying to scream, hit, punch. New restraint order obtained for BUE and LLE.
[2022-09-29 18:00] VITALS: BP 117/64
[2022-09-29] MEDS: divalproex 250mg tablet, delayed-release PO SCH (19:57)
[2022-09-29] MEDS: K and/or MAG REPLACEMENT MC SCH (19:58)
[2022-09-29] MEDS: potassium Cl 20 mEq SR tablet PO PRN (19:58)
[2022-09-29 22:00] VITALS: BP 113/61
[2022-09-30 01:57] VITALS: BP 104/61
[2022-09-30] MEDS: ipratropium/albuterol 3ml nebule NEB SCH ×6 (02:57→23:26)
[2022-09-30] MEDS: VANCOmycin 1250MG/NS 250ml Bag 250 ML IV SCH ×3 (04:15→22:15)
[2022-09-30] MEDS: potassium Cl 20 mEq SR tablet PO PRN (04:15)
[2022-09-30 06:00] VITALS: BP 110/62
--- NOTE | 2022-09-30 06:48 | NUR ---
Patient in room PCU 3012. I have received report from Anne and had the opportunity to ask questions and assume patient care.
[2022-09-30 06:56] LABS: MAGNESIUM 2.6 MG/DL (1.5-2.4); POTASSIUM 3.8 MMOL/L (3.5-5.1)
[2022-09-30] MEDS: K and/or MAG REPLACEMENT MC SCH ×2 (08:00→19:49)
[2022-09-30] MEDS: docusate sod 100mg capsule PO SCH ×2 (08:53→20:05)
[2022-09-30] MEDS: levoFLOXACIN-Levaquin 750MG/D5 150 ML IV SCH (08:53)
[2022-09-30] MEDS: folic acid 1mg tablet PO SCH (08:53)
[2022-09-30] MEDS: naltrexone 50mg tablet PO SCH (08:53)
[2022-09-30] MEDS: heparin, porcine 5000 units/ml vial SQ SCH ×2 (08:54→20:06)
[2022-09-30] MEDS: thiamine 100mg tablet PO SCH (08:54)
[2022-09-30] MEDS: divalproex 250mg tablet, delayed-release PO SCH ×3 (08:54→18:12)
[2022-09-30] MEDS: predniSONE 20 mg tablet PO SCH (08:55)
[2022-09-30] MEDS: haloperidol lactate 5mg/ml inj IM PRN ×2 (09:23→14:18)
[2022-09-30 10:00] VITALS: BP 107/62
[2022-09-30] MEDS: LORazepam 2 mg/ml vial IV PRN (11:59)
[2022-09-30] MEDS: normal saline 1000ml 1,000 ML IV SCH ×2 (12:03→20:06)
[2022-09-30] MEDS ORDERED: nicotine 14mg patch - 24hr TD ONE (15:45)
[2022-09-30 18:00] VITALS: BP 109/61
--- NOTE | 2022-09-30 18:17 | NUR ---
Problems reprioritized. Patient report given, questions answered & plan of care reviewed with Anne.
[2022-09-30] MEDS ORDERED: CALCIUM GLUC 1gm/50ml NACL,iso 50 ML IV ONE (20:05)
[2022-09-30] MEDS: ziprasidone 20mg capsule PO SCH (20:06)
[2022-09-30 22:00] VITALS: BP 103/64
[2022-10-01 02:39] VITALS: BP 102/65
[2022-10-01] MEDS: ipratropium/albuterol 3ml nebule NEB SCH ×6 (03:21→22:22)
[2022-10-01] MEDS: VANCOmycin 1250MG/NS 250ml Bag 250 ML IV SCH ×2 (05:15→13:08)
[2022-10-01 06:00] VITALS: BP 103/62
[2022-10-01 06:27] LABS: BASOPHILS % (AUTO) 0.2 % (0-1); EOSINOPHILS # (AUTO) 0.1 X10'3 (0-0.9); EOSINOPHILS % (AUTO) 0.9 % (0-6); HEMOGLOBIN 11.9 g/dl (14.0-17.9); LYMPHOCYTES # (AUTO) 3.7 X10'3 (1.1-4.8); LYMPHOCYTES % (AUTO) 22.8 % (21-51); MEAN CORPUSCULAR HEMOGLOBIN 27.8 PG (27.0-31.0); MEAN CORPUSCULAR HGB CONC 32.1 g/dL (33.0-36.5); MEAN CORPUSCULAR VOLUME 86.6 FL (78-98); MEAN PLATELET VOLUME 7.2 FL (7.4-10.4); MONOCYTES # (AUTO) 1.2 X10'3 (0-0.9); MONOCYTES % (AUTO) 7.3 % (2-12); NEUTROPHILS # (AUTO) 11.1 X10'3 (1.8-7.7); NEUTROPHILS % (AUTO) 68.8 % (42-75); PLATELET COUNT 480 X10'3 (140-440); RED BLOOD COUNT 4.28 X10'6 (4.70-6.10); RED CELL DISTRIBUTION WIDTH 14.7 % (11.5-14.5); WHITE BLOOD COUNT 16.2 X10'3 (4.5-11.0)
--- NOTE | 2022-10-01 06:30 | NUR ---
Patient in room PCU 3012. I have received report from Anne and had the opportunity to ask questions and assume patient care.
[2022-10-01 06:32] LABS: ALANINE AMINOTRANSFERASE 81 U/L (12-78); ALBUMIN 2.3 G/DL (3.4-5.0); ALBUMIN/GLOBULIN RATIO 0.6 (1.1-1.5); ALKALINE PHOSPHATASE 69 IU/L (46-116); ANION GAP 4 (8-16); ASPARTATE AMINO TRANSFERASE 44 U/L (10-37); BILIRUBIN,TOTAL 0.6 MG/DL (0.1-1.0); BLOOD UREA NITROGEN 15 MG/DL (7-18); CHLORIDE 104 MMOL/L (99-107); CREATININE 0.75 MG/DL (0.60-1.10); GLUCOSE 91 MG/DL (70-104); MAGNESIUM 2.5 MG/DL (1.5-2.4); PHOSPHORUS 4.3 MG/DL (2.3-4.5); SODIUM 138 MMOL/L (135-145); TOTAL CARBON DIOXIDE 29.7 MMOL/L (24-32); eGFR > 90 ML/MIN
[2022-10-01] MEDS: K and/or MAG REPLACEMENT MC SCH ×2 (08:00→20:00)
[2022-10-01] MEDS ORDERED: furosemide 20 MG/2 ML vial IV ONE (08:25)
[2022-10-01] MEDS: thiamine 100mg tablet PO SCH (08:36)
[2022-10-01] MEDS: docusate sod 100mg capsule PO SCH ×2 (08:36→20:00)
[2022-10-01] MEDS: naltrexone 50mg tablet PO SCH (08:36)
[2022-10-01] MEDS: levoFLOXACIN-Levaquin 750MG/D5 150 ML IV SCH (08:36)
[2022-10-01] MEDS: folic acid 1mg tablet PO SCH (08:36)
[2022-10-01] MEDS: heparin, porcine 5000 units/ml vial SQ SCH ×2 (08:37→20:01)
[2022-10-01] MEDS: calcium carbonate 500mg tablet PO SCH ×3 (08:37→17:21)
[2022-10-01] MEDS: divalproex 250mg tablet, delayed-release PO SCH ×3 (08:37→17:21)
[2022-10-01] MEDS: nicotine 14mg patch - 24hr TD SCH (08:37)
[2022-10-01] MEDS: predniSONE 20 mg tablet PO SCH (08:38)
[2022-10-01 09:16] LABS: PLATELET ESTIMATE NORMAL; TOTAL CELLS COUNTED 100
[2022-10-01 10:00] VITALS: BP 91/57
[2022-10-01] MEDS: ziprasidone 20mg capsule PO SCH ×2 (10:00→20:00)
[2022-10-01] MEDS: haloperidol lactate 5mg/ml inj IM PRN (10:25)
[2022-10-01] MEDS ORDERED: iohexol 350MG/ML 100ml bottle IV ONE (11:03)
[2022-10-01] MEDS ORDERED: prednisone 10mg tablet PO SCH (12:55)
[2022-10-01] MEDS ORDERED: ondansetron 4mg rapidly disintigrating tab PO PRN (16:15)
[2022-10-01 18:00] VITALS: BP 111/65
--- NOTE | 2022-10-01 18:07 | NUR ---
Problems reprioritized. Patient report given, questions answered & plan of care reviewed with Anne.
[2022-10-01 23:30] VITALS: BP 95/60
[2022-10-02] MEDS: ipratropium/albuterol 3ml nebule NEB SCH ×6 (02:27→23:00)
[2022-10-02 02:56] VITALS: BP 94/55
[2022-10-02 06:00] VITALS: BP 91/54
[2022-10-02 06:21] LABS: BASOPHILS % (AUTO) 0.2 % (0-1); EOSINOPHILS # (AUTO) 0.1 X10'3 (0-0.9); EOSINOPHILS % (AUTO) 0.6 % (0-6); LYMPHOCYTES % (AUTO) 26.7 % (21-51); MEAN CORPUSCULAR HEMOGLOBIN 28.6 PG (27.0-31.0); MEAN CORPUSCULAR HGB CONC 33.4 g/dL (33.0-36.5); MEAN CORPUSCULAR VOLUME 85.7 FL (78-98); MEAN PLATELET VOLUME 6.8 FL (7.4-10.4); MONOCYTES # (AUTO) 1.1 X10'3 (0-0.9); MONOCYTES % (AUTO) 7.5 % (2-12); NEUTROPHILS # (AUTO) 9.8 X10'3 (1.8-7.7); PLATELET COUNT 496 X10'3 (140-440); RED BLOOD COUNT 4.55 X10'6 (4.70-6.10); RED CELL DISTRIBUTION WIDTH 14.4 % (11.5-14.5)
--- NOTE | 2022-10-02 06:46 | NUR ---
Patient in room PCU 3012. I have received report from Anne and had the opportunity to ask questions and assume patient care.
[2022-10-02 06:59] LABS: ALANINE AMINOTRANSFERASE 77 U/L (12-78); ALBUMIN 2.6 G/DL (3.4-5.0); ALBUMIN/GLOBULIN RATIO 0.6 (1.1-1.5); ALKALINE PHOSPHATASE 71 IU/L (46-116); ANION GAP 4 (8-16); ASPARTATE AMINO TRANSFERASE 42 U/L (10-37); BILIRUBIN,TOTAL 0.6 MG/DL (0.1-1.0); BLOOD UREA NITROGEN 19 MG/DL (7-18); CALCIUM 8.7 MG/DL (8.5-10.1); CHLORIDE 101 MMOL/L (99-107); CREATININE 0.76 MG/DL (0.60-1.10); GLUCOSE 88 MG/DL (70-104); MAGNESIUM 2.4 MG/DL (1.5-2.4); PHOSPHORUS 5.2 MG/DL (2.3-4.5); SODIUM 136 MMOL/L (135-145); TOTAL CARBON DIOXIDE 30.9 MMOL/L (24-32); TOTAL PROTEIN 6.7 G/DL (6.4-8.2); eGFR > 90 ML/MIN
[2022-10-02 07:31] LABS: PLATELET ESTIMATE NORMAL; TOTAL CELLS COUNTED 100
[2022-10-02] MEDS: K and/or MAG REPLACEMENT MC SCH ×2 (07:56→19:03)
[2022-10-02] MEDS: docusate sod 100mg capsule PO SCH ×2 (08:05→20:51)
[2022-10-02] MEDS: naltrexone 50mg tablet PO SCH (08:06)
[2022-10-02] MEDS: folic acid 1mg tablet PO SCH (08:06)
[2022-10-02] MEDS: thiamine 100mg tablet PO SCH (08:06)
[2022-10-02] MEDS: heparin, porcine 5000 units/ml vial SQ SCH ×2 (08:06→20:00)
[2022-10-02] MEDS: ziprasidone 20mg capsule PO SCH ×2 (08:06→20:00)
[2022-10-02] MEDS: calcium carbonate 500mg tablet PO SCH ×3 (08:07→20:52)
[2022-10-02] MEDS: nicotine 14mg patch - 24hr TD SCH (08:07)
[2022-10-02] MEDS: divalproex 250mg tablet, delayed-release PO SCH ×3 (08:07→20:52)
[2022-10-02] MEDS: predniSONE 20 mg tablet PO SCH (08:07)
[2022-10-02 11:00] VITALS: BP 94/54
[2022-10-02] MEDS: levoFLOXACIN 750MG TABLET PO SCH (11:57)
--- NOTE | 2022-10-02 14:54 | NUR ---
Offered to walk with patient around the floor. Patient declined, stating he only wanted to go outside. Advised we could not go outside. Family was present.
[2022-10-02] MEDS: haloperidol lactate 5mg/ml inj IM PRN (15:22)
--- NOTE | 2022-10-02 15:39 | NUR ---
Problems reprioritized. Patient report given, questions answered & plan of care reviewed with Merle.
--- NOTE | 2022-10-02 15:49 | NUR ---
Patient in room PCU 3012. I have received report from Yaneth MULLER and had the opportunity to ask questions and assume patient care. Pt is laying semi fowlers in bed. Pt has soft wrist restraint to L wrist, L lower leg, and R lower leg. Restraints releassed and assed per policy. No s/s of distress, no s/s of pain, good circulation. Pt has mother at bed side. Pt on 4L NC. No s/s of distress. No c/o pain at this time. BLL, call light within reach, frequenlty used items in reach, frequwnt rounding, insulation worker furnace installer socks on, TAB alarm in place. Alarm audiable. Will continue to monitor.
[2022-10-02] MEDS: LORazepam 2 mg/ml vial IV PRN (16:15)
--- NOTE | 2022-10-02 16:49 | NUR ---
1500 svn triaged-therapist not available
[2022-10-02 18:00] VITALS: BP 90/51
--- NOTE | 2022-10-02 18:41 | NUR ---
Problems reprioritized. Patient report given, questions answered & plan of care reviewed with Tanya MULLER.
[2022-10-02 22:00] VITALS: BP 93/62
[2022-10-03 02:00] VITALS: BP 88/64
[2022-10-03] MEDS: ipratropium/albuterol 3ml nebule NEB SCH ×4 (03:00→14:29)
[2022-10-03 06:00] VITALS: BP 97/64
[2022-10-03 06:49] LABS: BASOPHILS % (AUTO) 0.1 % (0-1); EOSINOPHILS # (AUTO) 0.1 X10'3 (0-0.9); EOSINOPHILS % (AUTO) 0.5 % (0-6); HEMATOCRIT 39.9 % (42.0-52.0); HEMOGLOBIN 13.4 g/dl (14.0-17.9); LYMPHOCYTES # (AUTO) 3.6 X10'3 (1.1-4.8); LYMPHOCYTES % (AUTO) 29.6 % (21-51); MEAN CORPUSCULAR HEMOGLOBIN 28.8 PG (27.0-31.0); MEAN CORPUSCULAR HGB CONC 33.6 g/dL (33.0-36.5); MEAN CORPUSCULAR VOLUME 85.7 FL (78-98); MEAN PLATELET VOLUME 6.9 FL (7.4-10.4); MONOCYTES # (AUTO) 1.1 X10'3 (0-0.9); MONOCYTES % (AUTO) 9.3 % (2-12); NEUTROPHILS # (AUTO) 7.3 X10'3 (1.8-7.7); NEUTROPHILS % (AUTO) 60.5 % (42-75); PLATELET COUNT 477 X10'3 (140-440); RED BLOOD COUNT 4.66 X10'6 (4.70-6.10); RED CELL DISTRIBUTION WIDTH 14.6 % (11.5-14.5); WHITE BLOOD COUNT 12.1 X10'3 (4.5-11.0)
[2022-10-03 06:50] LABS: ALANINE AMINOTRANSFERASE 64 U/L (12-78); ALBUMIN 2.8 G/DL (3.4-5.0); ALBUMIN/GLOBULIN RATIO 0.7 (1.1-1.5); ALKALINE PHOSPHATASE 67 IU/L (46-116); ANION GAP 6 (8-16); ASPARTATE AMINO TRANSFERASE 35 U/L (10-37); BILIRUBIN,TOTAL 0.7 MG/DL (0.1-1.0); BLOOD UREA NITROGEN 22 MG/DL (7-18); BUN/CREATININE RATIO 29.3 (5.4-32.0); CALCIUM 9.5 MG/DL (8.5-10.1); CHLORIDE 99 MMOL/L (99-107); CREATININE 0.75 MG/DL (0.60-1.10); GLUCOSE 92 MG/DL (70-104); MAGNESIUM 2.6 MG/DL (1.5-2.4); PHOSPHORUS 4.5 MG/DL (2.3-4.5); SODIUM 134 MMOL/L (135-145); TOTAL CARBON DIOXIDE 28.6 MMOL/L (24-32); TOTAL PROTEIN 6.8 G/DL (6.4-8.2); eGFR > 90 ML/MIN
[2022-10-03] MEDS: K and/or MAG REPLACEMENT MC SCH (08:00)
[2022-10-03 08:26] LABS: PLATELET ESTIMATE INCREASED; TOTAL CELLS COUNTED 100
[2022-10-03] MEDS: thiamine 100mg tablet PO SCH (09:04)
[2022-10-03] MEDS: ziprasidone 20mg capsule PO SCH (09:04)
[2022-10-03] MEDS: predniSONE 20 mg tablet PO SCH (09:04)
[2022-10-03] MEDS: naltrexone 50mg tablet PO SCH (09:04)
[2022-10-03] MEDS: divalproex 250mg tablet, delayed-release PO SCH ×2 (09:04→11:48)
[2022-10-03] MEDS: calcium carbonate 500mg tablet PO SCH ×2 (09:04→11:48)
[2022-10-03] MEDS: folic acid 1mg tablet PO SCH (09:04)
[2022-10-03] MEDS: docusate sod 100mg capsule PO SCH (09:04)
[2022-10-03] MEDS: nicotine 14mg patch - 24hr TD SCH (09:05)
[2022-10-03] MEDS: heparin, porcine 5000 units/ml vial SQ SCH (09:05)
[2022-10-03 11:00] VITALS: BP 98/58
[2022-10-03] MEDS: levoFLOXACIN 750MG TABLET PO SCH (11:48)
--- NOTE | 2022-10-03 15:45 | NUR ---
Patient found missing after I was notified that patient had leads off. vacuum technician said I was down there within two minutes. I went to check on the patient since he had leads off . A visitor for B bed said he went out the room and down the badillo. I notified transmitter engineer in charge that we had a missing patient and he called security while me and several other RNs and aides searched the floor. Patient was not found on the floor. Security found patient on [facility] and they are bringing him back to remove his IV and for him to sign AMA form as he is not on a hold. Dr. Robins came up to check on the patient and was notified in person of the situation.
--- NOTE | 2022-10-03 15:54 | NUR ---
PAGER ID: [phone] MESSAGE: TRE [phone], PATIENT IN [id number] WAS FOUND AND IS NOW GOING TO LEAVE [place]
== END 2022-10-03 16:05 | disposition left against medical advice (07) | DRG 720 ==
LOC: ER 11:21 → ED HOLD 13:13 → EDBEDREQ 15:32 → PCU 3S 16:29
PROVIDERS: ADMIT Family Medicine; ATTEND Family Medicine
DX: A41.9 Sepsis, unspecified organism (principal); G93.41 Metabolic encephalopathy; E87.1 Hypo-osmolality and hyponatremia; J18.9 Pneumonia, unspecified organism; F10.139 Alcohol abuse with withdrawal, unspecified; Y90.9 Presence of alcohol in blood, level not specified; F15.10 Other stimulant abuse, uncomplicated; F17.210 Nicotine dependence, cigarettes, uncomplicated; Z53.29 Procedure and treatment not carried out because of patient's decision for other reasons; Z78.1 Physical restraint status
CPT/HCPCS: 36415; 36600; 71045; 71275; 80048; 80053; 80202; 80320; 82803; 83605; 83735; 84100; 84132; 84145; 85007; 85018; 85025; 87040; 93005; 94640; 94760; 96365; 97116; 97161; 97530; 97535; 99285; A4349; A4615; A5200; A6455; G0378; J0456; J0610; J0696; J1630; J1644; J1956; J2060; J2405; J2930; J3370; J3411; J3480; J3490; J7030; J7512; Q9967

== ENCOUNTER 2022-10-03 16:54 | Inpatient (IN) | payer MEDICAID ==
[~2022-10-03] VITALS: Ht 177.8 cm; Wt 73.0 kg
[~2022-10-03 16:54] MED LIST changes: +NO HOME MEDS; -PANT-47 PO
[2022-10-03] MEDS ORDERED: magnesium 4gm in 100ml NS 100 ML IV PRN (17:55)
[2022-10-03] MEDS ORDERED: ondansetron/PF 4mg/2ml inj IV PRN (17:55)
[2022-10-03] MEDS ORDERED: potassium Cl 20 mEq SR tablet PO PRN ×2 (17:55)
[2022-10-03] MEDS ORDERED: mag hydrox/Alum hydrox/simeth 30ml oral suspension PO PRN (17:55)
[2022-10-03] MEDS ORDERED: acetaminophen 325mg tablet PO PRN (17:55)
[2022-10-03] MEDS ORDERED: potassium Cl 40MEQ/1/2NS 520ml 520 ML IV PRN (17:55)
[2022-10-03] MEDS ORDERED: magnesium hydroxide 30ml (MOM) UD suspension PO PRN (17:55)
[2022-10-03] MEDS ORDERED: magnesium Cl slow-release 64mg tablet PO PRN (17:55)
[2022-10-03] MEDS: normal saline 1000ml 1,000 ML IV SCH (18:07)
[2022-10-03] MEDS: docusate sod 100mg capsule PO SCH (20:00)
[2022-10-03] MEDS ORDERED: ziprasidone 20mg capsule PO SCH (20:00)
[2022-10-03] MEDS ORDERED: divalproex 250mg tablet, delayed-release PO SCH (21:00)
[2022-10-04] MEDS: normal saline 1000ml 1,000 ML IV SCH ×4 (03:55→23:55)
[2022-10-04] MEDS: LORazepam 2 mg/ml vial IV PRN ×2 (06:47→18:04)
[2022-10-04] MEDS: docusate sod 100mg capsule PO SCH ×2 (08:00→20:00)
[2022-10-04] MEDS: nicotine 21mg patch - 24 hr TD SCH (08:36)
[2022-10-04] MEDS: folic acid 1mg tablet PO SCH (08:36)
[2022-10-04] MEDS: ziprasidone 20mg capsule PO SCH (08:36)
[2022-10-04] MEDS: thiamine 100mg tablet PO SCH (08:36)
[2022-10-04] MEDS: naltrexone 50mg tablet PO SCH (08:45)
--- NOTE | 2022-10-04 08:53 | NUR ---
PT GIVEN TRAY AND ATE ALL. MORNING MEDS GIVEN. PT IS CALM COOPERATIVE AND SPEAKS CLEARLY. RESP EVEN UNLABORED.
[2022-10-04] MEDS: divalproex 250mg tablet, delayed-release PO SCH ×2 (10:58→20:28)
--- NOTE | 2022-10-04 11:59 | NUR ---
per social work pt can be discharged when pt is ready. pt father is at bedside. dr anderson aware of director of social services amanda and is awaiting written report.
--- NOTE | 2022-10-04 15:47 | NUR ---
per dr justin euceda to hold ns at 100 ml/hr. pt is eating and drinking.
--- NOTE | 2022-10-04 18:38 | NUR ---
report to mauro gallegos for continuation of care.
--- NOTE | 2022-10-04 20:59 | NUR ---
Report called to Tara who kindly accepts report at this time.
[2022-10-04 21:45] VITALS: BP 91/50
[2022-10-05 02:00] VITALS: BP 89/56
[2022-10-05 07:21] VITALS: BP 87/47
[2022-10-05] MEDS: docusate sod 100mg capsule PO SCH (08:00)
[2022-10-05] MEDS: divalproex 250mg tablet, delayed-release PO SCH (09:08)
[2022-10-05] MEDS: nicotine 21mg patch - 24 hr TD SCH (09:08)
[2022-10-05] MEDS: thiamine 100mg tablet PO SCH (09:08)
[2022-10-05] MEDS: folic acid 1mg tablet PO SCH (09:09)
[2022-10-05] MEDS: ziprasidone 20mg capsule PO SCH (09:09)
[2022-10-05] MEDS: normal saline 1000ml 1,000 ML IV SCH (09:55)
--- NOTE | 2022-10-05 10:00 | NUR ---
Pt was out of his room when I went to administer a med. Found him sitting in hallway looking out our window. Advised him to return to room but he said we wanted to stay in his chair at the window. Pt is tearful and said he wants to go home. He is awaiting Dr to check on him. Will continue to monitor closely.
--- NOTE | 2022-10-05 10:04 | NUR ---
PAGER ID: [phone] MESSAGE: Adams [phone], Pt has walked out of his room and is looking out window on PCU floor. States he wants to talk to his Dr and go home. Andres [phone]
[2022-10-05] MEDS: naltrexone 50mg tablet PO SCH (10:42)
[2022-10-05] MEDS ORDERED: NICO-687 TD (10:48)
[2022-10-05] MEDS ORDERED: ZIPR20CA12 PO (10:48)
[2022-10-05] MEDS ORDERED: DIVA250T4 PO (10:48)
[2022-10-05] MEDS ORDERED: NALT50TA PO (10:48)
--- NOTE | 2022-10-05 11:44 | NUR ---
Pt was DC'd as per Dr's orders. Education was given at bedside with family present. Medications were sent to pharmacy and pt was made aware. All IV's and tele was unhooked from pt. Pt didnt come in with any belongings but family brought cloths for them, all belongings sent with family. Pt was wheeled down in wheelchair by [employer]. Pt was driven away by family in a private car, being sent to home.
== END 2022-10-05 11:40 | disposition home or self-care (01) | DRG 720 ==
LOC: ER 16:55 → ED HOLD 17:58 → PCU 3S 10-04 21:30
PROVIDERS: ADMIT Family Medicine; ATTEND Family Medicine
DX: A41.9 Sepsis, unspecified organism (principal); J96.01 Acute respiratory failure with hypoxia; G92.8 Other toxic encephalopathy; I95.9 Hypotension, unspecified; J18.9 Pneumonia, unspecified organism; K21.9 Gastro-esophageal reflux disease without esophagitis; F17.210 Nicotine dependence, cigarettes, uncomplicated; F10.239 Alcohol dependence with withdrawal, unspecified; R65.20 Severe sepsis without septic shock; F15.10 Other stimulant abuse, uncomplicated; Z79.899 Other long term (current) drug therapy; Z71.6 Tobacco abuse counseling
CPT/HCPCS: 36415; 80320; 87081; 99285; G0378; J2060; J7030

== ENCOUNTER 2023-01-15 14:51 | Emergency (ER) | payer MEDICAID ==
[~2023-01-15] VITALS: Ht 167.6 cm; Wt 79.0 kg
[~2023-01-15 14:51] MED LIST changes: +DIVA250T4 PO; +NALT50TA PO; +NICO-687 TD; -NO HOME MEDS; +ZIPR20CA12 PO
[2023-01-15 15:25] LABS: CLARITY,URINE CLEAR (Clear); COLOR,URINE YELLOW (Yellow); GLUCOSE, URINE NEGATIVE (Neg); KETONES,URINE NEGATIVE (Neg); LEUKOCYTE ESTERASE ,URINE NEGATIVE (Neg); NITRITES, URINE NEGATIVE (Neg); OCCULT BLOOD,URINE NEGATIVE (Neg); PROTEIN,URINE NEGATIVE (Neg); UROBILINOGEN,URINE 0.2 E.U/dL (0.2-1.0)
[2023-01-15 15:25] LABS: BASOPHILS % (AUTO) 0.5 % (0-1); EOSINOPHILS # (AUTO) 0.2 X10'3 (0-0.9); EOSINOPHILS % (AUTO) 2.1 % (0-6); HEMATOCRIT 46.4 % (42.0-52.0); HEMOGLOBIN 15.4 g/dl (14.0-17.9); LYMPHOCYTES % (AUTO) 30.3 % (21-51); MEAN CORPUSCULAR HEMOGLOBIN 28.4 PG (27.0-31.0); MEAN CORPUSCULAR HGB CONC 33.3 g/dL (33.0-36.5); MEAN CORPUSCULAR VOLUME 85.5 FL (78-98); MEAN PLATELET VOLUME 6.8 FL (7.4-10.4); MONOCYTES # (AUTO) 0.5 X10'3 (0-0.9); MONOCYTES % (AUTO) 4.7 % (2-12); NEUTROPHILS # (AUTO) 6.2 X10'3 (1.8-7.7); NEUTROPHILS % (AUTO) 62.4 % (42-75); PLATELET COUNT 258 X10'3 (140-440); RED BLOOD COUNT 5.43 X10'6 (4.70-6.10); RED CELL DISTRIBUTION WIDTH 14.2 % (11.5-14.5); WHITE BLOOD COUNT 9.9 X10'3 (4.5-11.0)
[2023-01-15 15:27] LABS: UA COLLECTION TYPE VOIDED
[2023-01-15 15:44] LABS: ALANINE AMINOTRANSFERASE 127 U/L (12-78); ALBUMIN 3.9 G/DL (3.4-5.0); ALBUMIN/GLOBULIN RATIO 1.1 (1.1-1.5); ALKALINE PHOSPHATASE 100 IU/L (46-116); ANION GAP 11 (8-16); ASPARTATE AMINO TRANSFERASE 78 U/L (10-37); BILIRUBIN,TOTAL 0.3 MG/DL (0.1-1.0); BLOOD UREA NITROGEN 6 MG/DL (7-18); BUN/CREATININE RATIO 7.1 (10.0-20.0); CALCIUM 9.1 MG/DL (8.5-10.1); CHLORIDE 104 MMOL/L (99-107); CREATININE 0.85 MG/DL (0.60-1.10); GLUCOSE 122 MG/DL (70-104); LIPASE 145 U/L (73-393); POTASSIUM 3.3 MMOL/L (3.5-5.1); SODIUM 138 MMOL/L (135-145); TOTAL CARBON DIOXIDE 23.1 MMOL/L (24-32); TOTAL PROTEIN 7.3 G/DL (6.4-8.2); eGFR > 90 ML/MIN
[2023-01-15 16:00] VITALS: BP 116/77
--- NOTE | 2023-01-15 16:01 | NUR ---
PT DISCLOSES DURING ASSESSMENT HE IS MAINLY HERE BECAUSE "I MISSED WORK AND NEED A WORK NOTE, AND [facility] MAYBE GET SOMETHING FOR NAUSEA."
[2023-01-15] MEDS ORDERED: ONDA4TAB12 PO (16:14)
[2023-01-15] MEDS ORDERED: ondansetron 4mg rapidly disintigrating tab PO ONE (16:15)
== END 2023-01-15 16:55 | disposition home or self-care (01) ==
LOC: ER 14:52
DX: R11.10 Vomiting, unspecified (principal); K21.9 Gastro-esophageal reflux disease without esophagitis; F17.200 Nicotine dependence, unspecified, uncomplicated; F15.90 Other stimulant use, unspecified, uncomplicated; F10.10 Alcohol abuse, uncomplicated; Z79.899 Other long term (current) drug therapy; Y90.9 Presence of alcohol in blood, level not specified
CPT/HCPCS: 80053; 81003; 83690; 85025; 99283

== ENCOUNTER 2024-10-22 13:19 | Emergency (ER) | payer MEDICAID ==
[~2024-10-22] VITALS: Ht 175.3 cm; Wt 86.4 kg
[~2024-10-22 13:19] MED LIST changes: -NALT50TA PO; +NALT50TA5 PO; +ONDA-243 PO
[2024-10-22 13:42] VITALS: TEMP 97
[2024-10-22 15:44] VITALS: BP 140/90; PULSE 109; RESP 16; O2SAT 97
[2024-10-22] MEDS: acetaminophen 325mg tablet PO ONE (16:41)
[2024-10-22] MEDS ORDERED: LIDO700A32 TD (17:25)
[2024-10-22] MEDS ORDERED: BACL10TA2 PO (17:25)
== END 2024-10-22 17:30 | disposition home or self-care (01) ==
LOC: ER 13:20
DX: S06.0XAA Concussion with loss of consciousness status unknown, initial encounter (principal); S00.03XA Contusion of scalp, initial encounter; K21.9 Gastro-esophageal reflux disease without esophagitis; F10.10 Alcohol abuse, uncomplicated; F15.90 Other stimulant use, unspecified, uncomplicated; Y90.9 Presence of alcohol in blood, level not specified; Z79.899 Other long term (current) drug therapy; W18.39XA Other fall on same level, initial encounter; Y93.89 Activity, other specified; Y92.89 Other specified places as the place of occurrence of the external cause; Y99.8 Other external cause status
CPT/HCPCS: 70450; 72125; 99284; L0172

== ENCOUNTER 2025-04-05 07:55 | Emergency (ER) | payer MEDICAID ==
[~2025-04-05] VITALS: Ht 172.7 cm; Wt 83.2 kg
[~2025-04-05 07:55] MED LIST changes: +BACL10TA2 PO; +DIVA-159 PO; -DIVA250T4 PO; +LIDO-52 TD
[2025-04-05 08:23] LABS: LEUKOCYTE ESTERASE ,URINE NEGATIVE (Neg); NITRITES, URINE NEGATIVE (Neg); OCCULT BLOOD,URINE NEGATIVE (Neg)
[2025-04-05 08:38] LABS: UA COLLECTION TYPE CLN CATCH MIDSTREAM
[2025-04-05 08:38] LABS: MEAN PLATELET VOLUME 7.3 FL (7.4-10.4); RED CELL DISTRIBUTION WIDTH 14.6 % (11.5-14.5)
[2025-04-05 08:40] LABS: MUCUS STRANDS MANY /LPF (Neg)
[2025-04-05 08:41] LABS: SQUAMOUS EPITHELIAL CELL,UR NONE SEEN /LPF (FEW)
[2025-04-05 08:57] LABS: CREATININE 0.84 MG/DL (0.60-1.10); TOTAL CARBON DIOXIDE 22.2 MMOL/L (24-32); eCRCL 118 ML/MIN; eGFR > 90 ML/MIN
[2025-04-05] MEDS: morphine 4 MG/ML inj SYRINge IV PRN (09:07)
[2025-04-05] MEDS: ketorolac trometh 15mg/ml vial 15 MG/ML ML IV ONE (09:07)
[2025-04-05] MEDS: normal saline 1000ML IV soln IVB ONE (09:07)
[2025-04-05] MEDS: ondansetron/PF 4mg/2ml inj IV ONE (09:07)
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
--- NOTE | 2025-04-05 09:36 | RADIOLOGY REPORT ---
CHEST RADIOGRAPH Indication: abdominal pain, shortness of breath Technique: Single frontal view of the chest was obtained Comparison: CHEST,SINGLE VIEW on DOS: 09/29/22, CHEST,SINGLE VIEW on DOS: 09/25/22, CHEST,SINGLE VIEW o n DOS: 09/24/22, CHEST,SINGLE VIEW on DOS: 09/23/22 FINDINGS: Lines and Tubes: None Lungs: No focal consolidation. Pleura: No effusion. No pneumothorax. Cardiomediastinal contours: Unremarkable Bones: No acute osseous abnormality. IMPRESSION: No acute cardiopulmonary disease.
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
[2025-04-05] MEDS ORDERED: ONDA-243 PO (11:31)
[2025-04-05 14:43] VITALS: BP 108/67; PULSE 84; RESP 17; TEMP 99.6; O2SAT 97
== END 2025-04-05 12:28 | disposition home or self-care (01) ==
LOC: ER 07:55
DX: K44.9 Diaphragmatic hernia without obstruction or gangrene (principal); B34.9 Viral infection, unspecified; E86.0 Dehydration; M54.50 Low back pain, unspecified; R10.32 Left lower quadrant pain; R11.2 Nausea with vomiting, unspecified; E87.1 Hypo-osmolality and hyponatremia; E87.6 Hypokalemia; K21.9 Gastro-esophageal reflux disease without esophagitis; F15.90 Other stimulant use, unspecified, uncomplicated; Z20.822 Contact with and (suspected) exposure to COVID-19
CPT/HCPCS: 36415; 71045; 74176; 80053; 81001; 83690; 85025; 87811; 96361; 96374; 96375; 99285; J1885; J2270; J2405; J7030